=== PATIENT | female | born 1995 | race Asian ===

== ENCOUNTER 2023-09-28 18:14 | Emergency (ER) | payer OTHER ==
[~2023-09-28] VITALS: Ht 154.9 cm; Wt 49.9 kg
[2023-09-28 19:10] VITALS: BP 116/71; TEMP 98.4
[2023-09-28] MEDS ORDERED: KETOROLAC TROMETHAMINE INJ 30 MG/ML VIAL ONE (19:55)
[2023-09-28] MEDS: KETOROLAC TROMETHAMINE INJ 30 MG/ML VIAL IM ONE (19:58)
[2023-09-28] MEDS ORDERED: PRED50TA PO (21:24)
[2023-09-28] MEDS ORDERED: predniSONE 20 MG TABLET ONE (21:37)
[2023-09-28] MEDS: predniSONE 50 MG TABLET PO ONE (21:42)
[2023-09-28 21:45] VITALS: O2SAT 98
== END 2023-09-28 22:13 | disposition home or self-care (01) ==
LOC: ER 18:14
DX: M54.2 Cervicalgia (principal); M54.6 Pain in thoracic spine
CPT/HCPCS: 99283; 96372; J7512; J1885